=== PATIENT | female | born 1995 | race Caucasian/White ===

== ENCOUNTER 2021-11-06 18:06 | Emergency (ER) | payer BC, SELFPAY ==
[2021-11-06 18:18] VITALS: BP 123/67; PULSE 110; RESP 18; TEMP 37.2; O2SAT 100
[2021-11-06] MEDS: BENZONATATE 100 MG CAPSULE 200 MG PO (19:23)
--- NOTE | 2021-11-06 20:14 | ED.GENADULT ---
HPI - General Adult General Chief complaint: Upper Respiratory Infection Stated complaint: FEVER,BODY ACHES,SORE THROAT Time Seen by Provider: 11/06/21 18:57 Source: patient Mode of arrival: ambulatory Limitations: no limitations History of Present Illness HPI narrative: Patient is a 26-year-old female with chief complaint of fever, body aches, sore throat, headache that began 4 days ago. Patient states that she had COVID on New Year's and had been improving so she is not sure why she is having the symptoms she has presently. Patient reports some nausea but denies vomiting. She reports the nausea and sore throat have made it difficult to eat and drink the way that she should. Patient denies weakness, dizziness or syncope or chest pain or shortness of breath. Patient does report some dry cough. Patient denies chance of . Patient denies any allergies to any antibiotics. Related Data Home Medications Medication Instructions Recorded Confirmed albuterol sulfate 1 inh INHALATION QID PRN 11/06/21 Allergies Allergy/AdvReac Type Severity Reaction Status Date / Time No Known Allergies Allergy Verified 11/06/21 19:00 Review of Systems Review of Systems: CONSTITUTIONAL: Reports headache, body aches fever, denies chills, or sweats. EYES: Denies visual changes, redness, or discharge. ENT: Reports sore throat denies rhinorrhea, congestion, or otalgia. CARDIOVASCULAR: Denies chest pain, palpitations, or edema. RESPIRATORY: Reports dry cough denies dyspnea. GASTROINTESTINAL: Reports nausea denies abdominal pain, vomiting, or diarrhea. GENITOURINARY: Denies dysuria or hematuria. SKIN: Denies rash or itching. MUSCULOSKELETAL: Denies back pain, joint pain, or myalgia. NEUROLOGIC: Denies numbness, dizziness, or weakness. PSYCHIATRIC: Denies anxiety or depression. PMFSH Social History Social History Smoking status: Never smoker Alcohol intake: never Exam Narrative: GENERAL: Well-appearing, well-nourished, and in no acute distress. Not toxic or diaphoretic in appearance. HEAD: Normocephalic, atraumatic. EYES: PERRLA and EOMI. ENT: Nares clear, no rhinorrhea or epistaxis. Mucous membranes moist. Oropharynx with diffuse erythema without tonsillar hypertrophy exudate or other lesions. Bilateral TMs pearly sol nonbulging CHEST: Clear to auscultation. No respiratory distress. No wheezes rales or rhonchi. Dry cough noted during exam. Patient speaking in clear sentences without signs of distress. HEART: Slightly elevated rate and rhythm. ABDOMEN: Soft, nontender, nondistended, normal active bowel sounds. EXTREMITIES: Normal range of motion. No edema. SKIN: Warm, dry, no rash. NEURO: No focal deficits. Alert and oriented x3. PSYCH: Normal mood and affect. Course Vital Signs Vital signs: Vital Signs Temperature 99 F 11/06/21 18:18 Pulse Rate 110 H 11/06/21 18:18 Respiratory Rate 18 11/06/21 18:18 Blood Pressure 123/67 11/06/21 18:18 Pulse Oximetry 100 11/06/21 18:18 Temperature 99 F 11/06/21 18:18 Pulse Rate 110 H 11/06/21 18:18 Respiratory Rate 18 11/06/21 18:18 Blood Pressure 123/67 11/06/21 18:18 Pulse Oximetry 100 11/06/21 18:18 Medical Decision Making [facility] Narrative Medical decision making narrative: Patient tested positive for influenza A and strep. Patient symptoms started 4 days ago so she is not within the 72-hour window. Patient is denies allergies to penicillin so she will be started on amoxicillin. Patient has been instructed to take [id number] medications for her symptoms. Patient has been instructed to return to emergency department should she develop any emergent symptoms including but not limited to difficulty swallowing, breathing. Patient directed to follow-up with her primary care for reevaluation if needed. Vital Signs Vital Signs: Vital Signs Temperature 99 F 11/06/21 18:18 Pulse Rate 110 H 11/06/21 18:18 Respiratory Rate 11/06/21
[2021-11-06 20:15] VITALS: BP 105/62; PULSE 94; RESP 18; O2SAT 100
== END 2021-11-06 20:14 | disposition home or self-care (01) ==
PROVIDERS: Emergency Provider Emergency Medicine
DX: J10.1 Influenza due to other identified influenza virus with other respiratory manifestations (principal); J02.0 Streptococcal pharyngitis; Z86.16 Personal history of COVID-19
CPT/HCPCS: 87804; 87880; 99283; A9270